=== PATIENT | male | born 1970 | race Caucasian/White ===

== ENCOUNTER → 2017-03-09 | Outpatient (CLI) | payer MEDICAID ==
[2017-03-09 14:32] LABS: Anisocytosis Slight; HCT 47.3 % (39.0-53.0); HGB 14.3 gm/dL (13.0-17.5); MCH 29.3 pg (25.0-35.0); MCHC 30.3 g/dL (31.0-37.0); MCV 96.5 fL (80.0-100.0); Mean Platelet Volume 7.7; Platelet Count 299 k/uL (150-450); WBC 6.7 k/uL (3.8-10.6)
== END | disposition home or self-care (01) ==
LOC: LABWHC1 13:58
PROVIDERS: ATTEND Obstetrics & Gynecology
DX: E29.1 Testicular hypofunction (principal)
CPT/HCPCS: 36415; 82670; 84402; 84403; 85027

== ENCOUNTER 2017-04-22 10:02 | Inpatient (IN) | payer MEDICAID ==
[2017-04-22] MEDS ORDERED: ONDANSETRON 4 MG/2 ML VIAL IVP STA (10:40)
[2017-04-22] MEDS ORDERED: SODIUM CHLORIDE 0.9% 500 ML IV STA (10:40)
[2017-04-22] MEDS ORDERED: PANTOPRAZOLE 40 MG/10 ML VIAL IVP STA (10:40)
[2017-04-22] MEDS ORDERED: HYDROmorphone 0.5 MG/0.5 ML SYRINGE IVP STA (10:40)
--- NOTE | 2017-04-22 10:45 | ED ---
General Adult HPI - General Chief complaint: Abdominal Pain Stated complaint: Abdominal pain Time Seen by Provider: 04/22/17 10:20 Source: patient, family, RN notes reviewed Mode of arrival: wheelchair Limitations: no limitations - History of Present Illness Initial comments: Chief complaint and history of present illness is a 46-year-old male here with his . The patient reports that around 2 AM he started having epigastric pain. Sometimes deep breathing makes it worse. He did have nausea vomiting. Normal bowel movement. Decreased appetite. He did have a fatty meal during the evening. Patient reports having had this similar thing happen years ago but did not seek medical attention. - Related Data Home Medications Medication Instructions Recorded Confirmed Cholecalciferol [Vitamin D3] 1,000 unit PO DAILY 04/22/17 04/22/17 Dim 1 cap PO BID 04/22/17 04/22/17 Lisinopril 40 mg PO HS 04/22/17 04/22/17 Methylfolate 15 mg PO DAILY 04/22/17 04/22/17 Multivitamins, Thera [Multivitamin 1 tab PO DAILY 04/22/17 04/22/17 (formulary)] Allergies Allergy/AdvReac Type Severity Reaction Status Date / Time No Known Allergies Allergy Verified 04/22/17 12:48 Review of Systems ROS Statement: Those systems with pertinent positive or pertinent negative responses have been documented in the HPI. Review of systems. No complaint of headache or visual acuity changes no neck pain no chest pain but when he does take a breath the discomfort to the epigastric region did increase. Denies pain going through to the back. Points to the area from the right upper quadrant or left upper quadrant and more toward the middle of the upper abdomen as area of discomfort. Denies any diarrhea, no peripheral problems no dizziness. All systems are reviewed. Past medical problems hypertension, surgeries tonsillectomy. Patient also has and GFR. The patient's family history mother had breast cancer. Patient has hayfever. Nonsmoker, drinks alcohol rarely socially. ROS Other: All systems not noted in ROS Statement are negative. Past Medical History Past Medical History: Hypertension History of Any Multi-Drug Resistant Organisms: None Reported Past Surgical History: Tonsillectomy Past Psychological History: No Psychological Hx Reported Smoking Status: Never smoker Past Alcohol Use History: Occasional Past Drug Use History: None Reported General Exam - General Exam Comments Initial Comments: General: The patient is awake and alert, appears uncomfortable points to the epigastric region as a discomfort. Radiates across the upper left and right side of the abdomen. Vital signs temperature 97.7 pulse 88 respiratory rate 18 pulse ox 97 % room air blood pressure 132/78 Eye: extra-ocular movements are intact; there is normal conjunctiva bilaterally. No signs of icterus. Ears, nose, mouth and throat: There are moist mucous membranes Neck: The neck is supple, Cardiovascular: There is a regular rate and rhythm. No murmur, rub or gallop is appreciated. Respiratory: Lungs are clear to auscultation, respirations are non-labored, breath sounds are equal. No wheezes, stridor, rales, or rhonchi. Gastrointestinal: Soft, non-distended, non-tender abdomen without masses or organomegaly noted. There is no rebound or guarding present. Bowel sounds are unremarkable. States the discomfort runs from the right upper and left upper quadrant and centered in the epigastric region. No guarding appreciated. Back: No radiation of pain to the back. Musculoskeletal: Normal ROM, no tenderness, There is no pedal edema. . Pulses equal bilaterally 2+. Neurological: No evidence of any neuro deficits, no complaint of dizziness. Skin: No complaint of rashes. Limitations: no limitations Course Vital Signs 04/22/17 04/22/17 10:14 13:02 Temperature 97.7 F Pulse Rate 88 79 Respiratory 18 16 Rate Blood Pressure 132/78 110/78 O2 Sat by Pulse 97 98 Oximetry Medical Decision Making - Medical Decision Making Medical decision making; so far 6-year-old male with a complaint of discomfort to the epigastric region across the upper abdomen starting around 2 AM. He did have nausea vomiting once during the evening. The patient's labs show white count of 9.5 hemoglobin 14.8 hematocrit of 46. Potassium 4.6 BUN of 15 creatinine 0.5 and GFR greater than 60. Glucose 107. AST mildly elevated at 86. Urine clean no signs of infection amylase and lipase within normal limits. X-ray of the abdomen was done and reviewed by radiologist his impression is that within the abdomen, the abdominal gas pattern is normal. There is no evidence of obstruction or free air. No unusual calcifications are seen. Impression normal abdomen. As read by Dr. Mcclelland Patient does appear to be overlying the right kidney area. CT of the abdomen was done and reviewed radiologist's he called a report when he suspects to be a calculus cholecystitis with thickened gallbladder wall and pericolic fluid around the gallbladder. As read by Dr. Mcclelland Is cussed the case with the patient and his at bedside and on-call general surgeon Dr. granda. Patient be admitted to his service kept nothing by mouth continue on Zosyn. - Lab Data Result diagrams: 04/22/17 10:30 04/22/17 10:30 Lab Results 04/22/17 04/22/17 04/22/17 Range/Units 09:50 10:30 10:30 WBC 9.5 (3.8-10.6) k/uL RBC 4.97 (4.30-5.90) m/uL Hgb 14.8 (13.0-17.5) gm/dL Hct 46.3 (39.0-53.0) % MCV 93.0 (80.0-100.0) fL MCH 29.7 (25.0-35.0) pg MCHC 31.9 (31.0-37.0) g/dL RDW 13.8 (11.5-15.5) % Plt Count 245 (150-450) k/uL Neutrophils % 83 % Lymphocytes % 10 % Monocytes % 5 % Eosinophils % 1 % Basophils % 0 % Neutrophils # 7.8 H (1.3-7.7) k/uL Lymphocytes # 1.0 (1.0-4.8) k/uL Monocytes # 0.5 (0-1.0) k/uL Eosinophils # 0.1 (0-0.7) k/uL Basophils # 0.0 (0-0.2) k/uL Sodium 142 (137-145) mmol/L Potassium 4.6 (3.5-5.1) mmol/L Chloride 102 (98-107) mmol/L Carbon Dioxide 30 (22-30) mmol/L Anion Gap 10 mmol/L BUN 15 (9-20) mg/dL Creatinine 0.90 (0.66-1.25) mg/dL Est GFR (MDRD) Af Amer >60 (>60 ml/min/1.73 sqM) Est GFR (MDRD) Non-Af >60 (>60 ml/min/1.73 sqM) Glucose 107 H (74-99) mg/dL Plasma Lactic Acid Ben (0.7-2.0) mmol/L Calcium 9.2 (8.4-10.2) mg/dL Total Bilirubin 0.2 (0.2-1.3) mg/dL AST 86 H (17-59) U/L ALT 62 (21-72) U/L Alkaline Phosphatase 48 (38-126) U/L Troponin I (0.000-0.034) ng/mL Total Protein 7.3 (6.3-8.2) g/dL Albumin 4.3 (3.5-5.0) g/dL Amylase 76 (30-110) U/L Lipase 83 (23-300) U/L Urine Color Yellow Urine Appearance Clear (Clear) Urine pH 6.0 (5.0-8.0) Ur Specific [place] 1.018 (1.001-1.035) Urine Protein Negative (Negative) Urine Glucose (UA) Negative (Negative) Urine Ketones Negative (Negative) Urine Blood Negative (Negative) Urine Nitrite Negative (Negative) Urine Bilirubin Negative (Negative) Urine Urobilinogen <2.0 (<2.0) mg/dL Ur Leukocyte Esterase Negative (Negative) 04/22/17 04/22/17 Range/Units 10:30 10:30 WBC (3.8-10.6) k/uL RBC (4.30-5.90) m/uL Hgb (13.0-17.5) gm/dL Hct (39.0-53.0) % MCV (80.0-100.0) fL MCH (25.0-35.0) pg MCHC (31.0-37.0) g/dL RDW (11.5-15.5) % Plt Count (150-450) k/uL Neutrophils % % Lymphocytes % % Monocytes % % Eosinophils % % Basophils % % Neutrophils # (1.3-7.7) k/uL Lymphocytes # (1.0-4.8) k/uL Monocytes # (0-1.0) k/uL Eosinophils # (0-0.7) k/uL Basophils # (0-0.2) k/uL Sodium (137-145) mmol/L Potassium (3.5-5.1) mmol/L Chloride (98-107) mmol/L Carbon Dioxide (22-30) mmol/L Anion Gap mmol/L BUN (9-20) mg/dL Creatinine (0.66-1.25) mg/dL Est GFR (MDRD) Af Amer (>60 ml/min/1.73 sqM) Est GFR (MDRD) Non-Af (>60 ml/min/1.73 sqM) Glucose (74-99) mg/dL Plasma Lactic Acid Ben 0.8 (0.7-2.0) mmol/L Calcium (8.4-10.2) mg/dL Total Bilirubin (0.2-1.3) mg/dL AST (17-59) U/L ALT (21-72) U/L Alkaline Phosphatase (38-126) U/L Troponin I <0.012 (0.000-0.034) ng/mL Total Protein (6.3-8.2) g/dL Albumin (3.5-5.0) g/dL Amylase (30-110) U/L Lipase (23-300) U/L Urine Color Urine Appearance (Clear) Urine pH (5.0-8.0) Ur Specific [place] (1.001-1.035) Urine Protein (Negative) Urine Glucose (UA) (Negative) Urine Ketones (Negative) Urine Blood (Negative) Urine Nitrite (Negative) Urine Bilirubin (Negative) Urine Urobilinogen (<2.0) mg/dL Ur Leukocyte Esterase (Negative) Disposition Clinical Impression: Acute acalculous cholecystitis Disposition: ADMITTED IP TO THIS HOSP Condition: Fair Referrals: Mike Jurado III, MD [Primary Care Provider] - 1-2 days
[2017-04-22 11:00] LABS: Basophils % (A) 0 %; Eosinophils # (A) 0.1 k/uL (0-0.7); Eosinophils % (A) 1 %; HCT 46.3 % (39.0-53.0); HGB 14.8 gm/dL (13.0-17.5); Lymphocytes % (A) 10 %; MCH 29.7 pg (25.0-35.0); MCHC 31.9 g/dL (31.0-37.0); Mean Platelet Volume 7.8; Monocytes # (A) 0.5 k/uL (0-1.0); Monocytes % (A) 5 %; Neutrophils # (A) 7.8 k/uL (1.3-7.7); Neutrophils % (A) 83 %; Platelet Count 245 k/uL (150-450); RBC 4.97 m/uL (4.30-5.90); RDW 13.8 % (11.5-15.5); WBC 9.5 k/uL (3.8-10.6)
[2017-04-22 11:06] LABS: Appearance,Urine Clear (Clear); Bilirubin,Urine Negative (Negative); Blood,Urine Negative (Negative); Color,Urine Yellow; Glucose,Urine (UA) Negative (Negative); Ketones,Urine Negative (Negative); Leukocyte Esterase,Urine Negative (Negative); Nitrite,Urine Negative (Negative); Protein,Urine Negative (Negative); Specific Gravity,Urine 1.018 (1.001-1.035); Urobilinogen,Urine <2.0 mg/dL (<2.0)
[2017-04-22 11:10] LABS: ALT 62 U/L (21-72); AST 86 U/L (17-59); Albumin 4.3 g/dL (3.5-5.0); Alkaline Phosphatase 48 U/L (38-126); Amylase 76 U/L (30-110); Anion Gap 10 mmol/L; Blood Urea Nitrogen 15 mg/dL (9-20); Calcium 9.2 mg/dL (8.4-10.2); Carbon Dioxide 30 mmol/L (22-30); Chloride 102 mmol/L (98-107); Glucose 107 mg/dL (74-99); Lipase 83 U/L (23-300); Potassium 4.6 mmol/L (3.5-5.1); Sodium 142 mmol/L (137-145); Total Bilirubin 0.2 mg/dL (0.2-1.3); Total Protein 7.3 g/dL (6.3-8.2)
--- NOTE | 2017-04-22 11:46 | XR ---
EXAMINATION TYPE: XR abdomen 2V , 3 VIEWS DATE OF EXAM ORDERED: 04/22/2017 HISTORY: abdominal pain. COMPARISON: None. FINDINGS: The lung bases are clear. Within the abdomen, the abdominal gas pattern is normal. There is no evidence of obstruction or free air. No unusual calcifications are seen. IMPRESSION: NORMAL ABDOMEN.
[2017-04-22] MEDS ORDERED: IOHEXOL 350 MG/ML 25 ML BOTTLE (ORAL USE) PO PRN (12:52)
[2017-04-22] MEDS ORDERED: RX INFO: IV CONTRAST WAS GIVEN 1 EACH MISC MISCELLANE PRN (12:52)
--- NOTE | 2017-04-22 14:33 | CT ---
EXAMINATION TYPE: CT abdomen pelvis w con DATE OF EXAM: 04/22/2017 REFERENCE: NONE HISTORY: Epigastric pain HISTORY: Upper abdominal pain, stomach area REFERENCE: NONE CT DLP: 981.0 mGy Automated exposure control for dose reduction was used. TECHNIQUE: Helical acquisition through the abdomen and pelvis was obtained following the oral ingesti on of with Oral Contrast and following intravenous administration of 100 mL of Omnipaque 300. The jace a was reformatted in axial, coronal and sagittal projections. FINDINGS: There is mild atelectasis at the lung bases. Lungs otherwise clear. There is no pleural or pericardial fluid. The heart is not enlarged. Within the abdomen, there is gross enhancement or gallbladder wall. There is pericholecystic fluid. The liver and spleen appear normal. Both adrenal glands appear normal. There is a nonobstructing 8 mm calculus in the posterior middle pole calyx of the right kidney. The k idneys otherwise appear normal. The pancreas is unremarkable. There is no significant retroperitoneal, iliac or inguinal adenopathy. The bladder is unremarkable. There is no significant diverticular change and there is no radiographic evidence of diverticulitis. The appendix is normal. Small bowel loops appear normal. No free fluid and no free air is seen. There is minor hypertrophic spondylosis at L1-2. No bony destructive lesion is seen. IMPRESSION: 1. FINDINGS SUGGESTIVE OF ACUTE ACALCULOUS CHOLECYSTITIS. 2. 8MM NONOBSTRUCTING RIGHT RENAL CALCULUS. 3. MINIMAL DEGENERATIVE CHANGE WITHIN THE SPINE.
[2017-04-22] MEDS ORDERED: ONDANSETRON 4 MG/2 ML VIAL IVP PRN (14:40)
[2017-04-22] MEDS ORDERED: NALOXONE 0.4 MG/ML 1 ML VIAL IV PRN (14:40)
[2017-04-22] MEDS: SODIUM CHLORIDE 0.9% 1,000 ML IV SCH ×2 (15:08→20:24)
[2017-04-22] MEDS: PIPERACILLIN-TAZOBACTAM 3.375 GM in DEXTROSE/WATER 1 50ML.BAG IVPB STA ×2 (15:09→15:10)
[2017-04-22 15:51] VITALS: BMI 29.1
--- NOTE | 2017-04-22 18:08 | P.GSHP ---
History of Present Illness H&P Date: 04/22/17 46-year-old male presents to the emergency department complaining of severe epigastric pain. He states that the pain started late last night and begin his epigastrium and then radiated to his sides. He also complained of nausea and an emesis episode. He states that he had a similar attack approximately 2 years ago that resolved on its own. He denies having any severe reflux symptoms. He did have a CT of the abdomen and pelvis performed in the emergency department that did show gallbladder wall thickening and pericholecystic fluid. Per the radiologist, suspicious for acalculous cholecystitis. He has no additional complaints at this time. He denies any fevers, chills, chest pain or shortness of breath. - Review of Systems All systems: negative Past Medical History Past Medical History: Hypertension, Skin Disorder Additional Past Medical History / Comment(s): basal cell ca History of Any Multi-Drug Resistant Organisms: None Reported Past Surgical History: Tonsillectomy Past Anesthesia/Blood Transfusion Reactions: No Reported Reaction Past Psychological History: No Psychological Hx Reported Smoking Status: Never smoker Past Alcohol Use History: Occasional Past Drug Use History: None Reported Medications and Allergies Home Medications Medication Instructions Recorded Confirmed Type Cholecalciferol [Vitamin D3] 1,000 unit PO DAILY 04/22/17 04/22/17 History Dim 1 cap PO BID 04/22/17 04/22/17 History Lisinopril 40 mg PO HS 04/22/17 04/22/17 History Methylfolate 15 mg PO DAILY 04/22/17 04/22/17 History Multivitamins, Thera [Multivitamin 1 tab PO DAILY 04/22/17 04/22/17 History (formulary)] Allergies Allergy/AdvReac Type Severity Reaction Status Date / Time No Known Allergies Allergy Verified 04/22/17 12:48 Surgical - Exam Osteopathic Statement: *. No significant issues noted on an osteopathic structural exam other than those noted in the History and Physical/Consult. Vital Signs Temp Pulse Resp BP Pulse Ox 97.7 F 88 18 132/78 97 04/22/17 10:14 04/22/17 10:14 04/22/17 10:14 04/22/17 10:14 04/22/17 10:14 - General well nourished, no distress - Eyes PERRL, normal ocular movement - ENT normal mucosa, no hearing loss - Neck no masses, no bruits, trachea midline - Respiratory No difficulty with respiration - Abdomen Soft, mild tenderness in the epigastrium, no rebound, no guarding, nondistended - Integumentary no rash, no growths - Neurologic normal sensation - Psychiatric oriented to time, oriented to person, oriented to place, speech is normal, memory intact Results - Labs 04/22/17 10:30 04/22/17 10:30 Abnormal Lab Results - Last 24 Hours (Table) 04/22/17 04/22/17 Range/Units 10:30 10:30 Neutrophils # 7.8 H (1.3-7.7) k/uL Glucose 107 H (74-99) mg/dL AST 86 H (17-59) U/L Diabetes panel 04/22/17 Range/Units 10:30 Sodium 142 (137-145) mmol/L Potassium 4.6 (3.5-5.1) mmol/L Chloride 102 (98-107) mmol/L Carbon Dioxide 30 (22-30) mmol/L BUN 15 (9-20) mg/dL Creatinine 0.90 (0.66-1.25) mg/dL Glucose 107 H (74-99) mg/dL Calcium 9.2 (8.4-10.2) mg/dL AST 86 H (17-59) U/L ALT 62 (21-72) U/L Alkaline Phosphatase 48 (38-126) U/L Total Protein 7.3 (6.3-8.2) g/dL Albumin 4.3 (3.5-5.0) g/dL Calcium panel 04/22/17 Range/Units 10:30 Calcium 9.2 (8.4-10.2) mg/dL Albumin 4.3 (3.5-5.0) g/dL Pituitary panel 04/22/17 Range/Units 10:30 Sodium 142 (137-145) mmol/L Potassium 4.6 (3.5-5.1) mmol/L Chloride 102 (98-107) mmol/L Carbon Dioxide 30 (22-30) mmol/L BUN 15 (9-20) mg/dL Creatinine 0.90 (0.66-1.25) mg/dL Glucose 107 H (74-99) mg/dL Calcium 9.2 (8.4-10.2) mg/dL Adrenal panel 04/22/17 Range/Units 10:30 Sodium 142 (137-145) mmol/L Potassium 4.6 (3.5-5.1) mmol/L Chloride 102 (98-107) mmol/L Carbon Dioxide 30 (22-30) mmol/L BUN 15 (9-20) mg/dL Creatinine 0.90 (0.66-1.25) mg/dL Glucose 107 H (74-99) mg/dL Calcium 9.2 (8.4-10.2) mg/dL Total Bilirubin 0.2 (0.2-1.3) mg/dL AST 86 H (17-59) U/L ALT 62 (21-72) U/L Alkaline Phosphatase 48 (38-126) U/L Total Protein 7.3 (6.3-8.2) g/dL Albumin 4.3 (3.5-5.0) g/dL - Imaging CT scan - abdomen: report reviewed (Reviewed CT abdomen and pelvis, I agree with the finding of pericholecystic fluid and gallbladder wall thickening), image reviewed CT scan - pelvis: report reviewed, image reviewed Assessment and Plan (1) Acute acalculous cholecystitis Current Visit: Yes Status: Acute Code(s): K81.0 - ACUTE CHOLECYSTITIS SNOMED Code(s): 66909759 Plan: 46-year-old male with acute cholecystitis #1 continue Zosyn as an antibiotic #2 clear liquid diet, nothing by mouth after midnight #3 plan for laparoscopic cholecystectomy #4 DVT prophylaxis #5 further recommendations once surgery is completed
[2017-04-22] MEDS: HYDROmorphone 0.5 MG/0.5 ML SYRINGE IVP PRN (20:25)
[2017-04-23] MEDS: PIPERACILLIN-TAZOBACTAM 3.375 GM in DEXTROSE/WATER 1 50ML.BAG IVPB SCH ×4 (01:04→23:32)
[2017-04-23] MEDS: HYDROmorphone 0.5 MG/0.5 ML SYRINGE IVP PRN (01:50)
[2017-04-23] MEDS: SODIUM CHLORIDE 0.9% 1,000 ML IV SCH ×2 (04:59→11:31)
[2017-04-23 07:01] LABS: Basophils % (A) 1 %; Eosinophils # (A) 0.2 k/uL (0-0.7); Eosinophils % (A) 4 %; HGB 13.5 gm/dL (13.0-17.5); Lymphocytes # (A) 1.7 k/uL (1.0-4.8); Lymphocytes % (A) 30 %; MCH 29.3 pg (25.0-35.0); MCHC 30.7 g/dL (31.0-37.0); MCV 95.4 fL (80.0-100.0); Mean Platelet Volume 7.7; Monocytes # (A) 0.4 k/uL (0-1.0); Monocytes % (A) 7 %; Neutrophils # (A) 3.1 k/uL (1.3-7.7); Neutrophils % (A) 56 %; Platelet Count 265 k/uL (150-450); RBC 4.61 m/uL (4.30-5.90); RDW 13.8 % (11.5-15.5); WBC 5.4 k/uL (3.8-10.6)
[2017-04-23 07:24] LABS: ALT 297 U/L (21-72); AST 227 U/L (17-59); Albumin 3.4 g/dL (3.5-5.0); Alkaline Phosphatase 53 U/L (38-126); Anion Gap 8 mmol/L; Blood Urea Nitrogen 7 mg/dL (9-20); Calcium 8.8 mg/dL (8.4-10.2); Carbon Dioxide 27 mmol/L (22-30); Chloride 106 mmol/L (98-107); Glucose 99 mg/dL (74-99); Potassium 4.5 mmol/L (3.5-5.1); Sodium 141 mmol/L (137-145); Total Bilirubin 0.7 mg/dL (0.2-1.3)
[2017-04-23] MEDS ORDERED: IV FLUID CONTINUATION 1,000 ML IV ONE (08:16)
[2017-04-23] MEDS: PANTOPRAZOLE 40 MG/10 ML VIAL IV SCH (08:17)
[2017-04-23] MEDS ORDERED: HEPARIN SODIUM,PORCINE 5,000 UNIT/ML 1 ML VIAL SQ ONE (08:40)
[2017-04-23] MEDS ORDERED: GLYCOPYRROLATE 0.2 MG/ML 2 ML VIAL ONE (09:03)
[2017-04-23] MEDS ORDERED: NEOSTIGMINE 1 MG/ML 10 ML VIAL ONE (09:03)
[2017-04-23] MEDS ORDERED: fentaNYL (PF) 50 MCG/ML 2 ML AMP ONE (09:03)
[2017-04-23] MEDS ORDERED: MIDAZOLAM 2 MG/2 ML VIAL ONE (09:03)
[2017-04-23] MEDS ORDERED: LIDOCAINE 1% INJ 10MG/ML (20 ML MDV) ONE (09:03)
[2017-04-23] MEDS ORDERED: PROPOFOL 10 MG/ML 20 ML VIAL IV ONE (09:03)
[2017-04-23] MEDS ORDERED: SUCCINYLCHOLINE CHLORIDE 100 MG/5 ML SYR IV ONE (09:03)
[2017-04-23] MEDS ORDERED: ONDANSETRON 4 MG/2 ML VIAL ONE (09:03)
[2017-04-23] MEDS ORDERED: ROCURONIUM BROMIDE 10 MG/ML 10 ML VIAL IV ONE (09:03)
[2017-04-23] MEDS ORDERED: BUPIVACAINE (PF) 0.25% 30 ML VIAL SQ ONE ×2 (09:22)
[2017-04-23] MEDS ORDERED: LACTATED RINGERS 1,000 ML IV ONE ×2 (09:52→11:02)
--- NOTE | 2017-04-23 10:19 | P.OP ---
Date of Procedure: 04/23/17 Preoperative Diagnosis: Acute cholecystitis Postoperative Diagnosis: Acute cholecystitis with calculus Procedure(s) Performed: Laparoscopic cholecystectomy Anesthesia: LIZ Surgeon: Kusum Waldrop Pathology: other (Gallbladder and contents) Condition: stable Disposition: floor Indications for Procedure: 46-year-old gentleman presented to the emergency department complaining of epigastric pain. On workup in the emergency department he was found to have pericholecystic fluid and gallbladder wall thickening suggestive of acute cholecystitis. No stones were evident on the computed tomography scan however. On examination the patient continued to have epigastric and right upper quadrant pain. With these findings, a cholecystectomy was offered to the patient. The patient was explained the risks, benefits and alternatives to the procedure and provided consent prior to attending the operating suite. Operative Findings: Edematous gallbladder with noted cholelithiasis Description of Procedure: The patient was brought into the operating suite placed in supine position on the operating table. Sedation was provided by anesthesia and the patient underwent endotracheal intubation. The patient was then prepped and draped in regular sterile fashion. A infraumbilical incision was made dissection was carried to the fascia the fascia was incised in the abdomen was entered. A 12 mm port was placed and pneumoperitoneum was achieved. 3 additional 5 mm ports were placed. One was placed in the epigastric region, the second was placed in the right upper quadrant, the third was placed in the right upper quadrant. The gallbladder was then grasped and retracted and dissection was carried to remove the adhesive tissue from the cystic duct and cystic artery. Both the cystic duct and cystic artery were skeletonized and clearly visualized. The cystic duct was then ligated after 2 clips were placed proximally and one clip was placed distally. 2 clips were also placed proximally and the cystic artery one was placed distally and the cystic artery was ligated. Electrocautery was then used to dissect the gallbladder from the gallbladder fossa on the liver bed. She was noted to be very edematous. Hemostasis was maintained with the electrocautery throughout this process. The gallbladder was then placed in an Endo Catch bag and removed from the infra umbilical incision site. Copious muss irrigation was then placed. Hemostasis was noted to be maintained. Pneumoperitoneum was relieved from the abdomen. All ports were removed. The infraumbilical incision site fascia was closed with multiple [id number] 0 Vicryl suture. All skin incisions were then closed with 4-0 Vicryl sutures in subcuticular fashion. The patient was then awakened in the operating suite and taken to postanesthesia care unit in stable condition.
[2017-04-23] MEDS ORDERED: KETOROLAC 30 MG/ML 1 ML VIAL IVP ONE (10:21)
[2017-04-23] MEDS ORDERED: HYDROmorphone 0.5 MG/0.5 ML SYRINGE IVP ONE ×4 (10:22→10:56)
[2017-04-23] MEDS ORDERED: HYDROcodone/APAP 5-325MG 1 EACH TAB PO PRN (11:02)
[2017-04-23] MEDS: HEPARIN SODIUM,PORCINE 5,000 UNIT/ML 1 ML VIAL SQ SCH ×2 (16:27→23:33)
[2017-04-23] MEDS: HYDROmorphone 2 MG TAB PO PRN ×2 (18:35→21:32)
[2017-04-23] MEDS ORDERED: LISINOPRIL 20 MG TAB PO SCH (21:00)
[2017-04-24] MEDS ORDERED: HYDROmorphone 0.5 MG/0.5 ML SYRINGE IVP PRN (00:27)
[2017-04-24] MEDS ORDERED: HYDROcodone/APAP 7.5-325MG 1 EACH TAB PO ONE (00:30)
[2017-04-24] MEDS ORDERED: HYDROmorphone 4 MG TABLET PO PRN ×2 (00:49→00:51)
[2017-04-24 07:25] LABS: Basophils % (A) 0 %; Eosinophils # (A) 0.1 k/uL (0-0.7); Eosinophils % (A) 2 %; HCT 38.9 % (39.0-53.0); HGB 11.9 gm/dL (13.0-17.5); Hypochromasia Slight; Lymphocytes # (A) 1.6 k/uL (1.0-4.8); Lymphocytes % (A) 26 %; MCH 29.6 pg (25.0-35.0); MCHC 30.5 g/dL (31.0-37.0); MCV 97.2 fL (80.0-100.0); Mean Platelet Volume 7.8; Monocytes # (A) 0.4 k/uL (0-1.0); Monocytes % (A) 7 %; Neutrophils # (A) 3.8 k/uL (1.3-7.7); Neutrophils % (A) 63 %; Platelet Count 228 k/uL (150-450)
[2017-04-24 07:26] VITALS: RESP 16
[2017-04-24] MEDS: HEPARIN SODIUM,PORCINE 5,000 UNIT/ML 1 ML VIAL SQ SCH (07:35)
[2017-04-24] MEDS: PIPERACILLIN-TAZOBACTAM 3.375 GM in DEXTROSE/WATER 1 50ML.BAG IVPB SCH (07:35)
[2017-04-24] MEDS: oxyCODONE-APAP 5-325MG 1 EACH TAB PO PRN ×2 (07:35→13:48)
[2017-04-24] MEDS: PANTOPRAZOLE 40 MG/10 ML VIAL IV SCH (07:36)
[2017-04-24 07:44] LABS: ALT 223 U/L (21-72); AST 96 U/L (17-59); Albumin 3.2 g/dL (3.5-5.0); Alkaline Phosphatase 49 U/L (38-126); Anion Gap 7 mmol/L; Blood Urea Nitrogen 7 mg/dL (9-20); Calcium 8.6 mg/dL (8.4-10.2); Carbon Dioxide 30 mmol/L (22-30); Chloride 102 mmol/L (98-107); Glucose 102 mg/dL (74-99); Potassium 4.1 mmol/L (3.5-5.1); Sodium 139 mmol/L (137-145); Total Bilirubin 0.4 mg/dL (0.2-1.3); Total Protein 5.5 g/dL (6.3-8.2)
[2017-04-24 14:20] VITALS: BP 121/74; PULSE 71; TEMP 98.2
--- NOTE | 2017-04-24 14:50 | P.DS ---
<Myra Fulton - Last Filed: 04/24/17 14:50> Providers Date of admission: 04/22/17 14:48 Expected date of discharge: 04/24/17 Attending physician: Kusum Waldrop DO Primary care physician: [facility] Course: Patient reported that the discomfort was severe it started the night before radiated to the sides. Associated with nausea. Had an emesis. Patient stated he had a similar attack about 2 years ago but it resolved on its own. CAT scan of the abdomen and pelvis performed in the emergency room did show gallbladder wall thickening and pericholecystic fluid. Suspicious for acalculous cholecystitis Patient was admitted to the services of the attending and elects to undergo a laparoscopic cholecystectomy for acute cholecystitis with calculus. Postop events. Patient was up ambulatory on the unit. Surgical sites no redness. Tolerating a diet and pain medication effective for pain control.. Patient was felt to be human mimic a stable and appropriate proceed with a discharge to home Impression discharge diagnosis Present on admission epigastric pain suspect due to acute cholecystitis Postop April 24 laparoscopic cholecystectomy for acute cholecystitis with calculus (1) Acute acalculous cholecystitis Current Visit: Yes Status: Acute Code(s): K81.0 - ACUTE CHOLECYSTITIS SNOMED Code(s): 44876580 Discharge summary dictated by Dr. Waldrop The above impression and plan of care have been discussed and directed by signing physician. Myra Fulton nurse practitioner acting as scribe for signing physician. Patient Condition at Discharge: Fair Plan - Discharge Summary Discharge Rx Participant: Yes New Discharge Prescriptions: New oxyCODONE-APAP 5-325MG [Percocet 5-325 mg] 1 each PO Q6HR PRN #15 tab PRN Reason: Pain Continue Methylfolate 15 mg PO DAILY Multivitamins, Thera [Multivitamin (formulary)] 1 tab PO DAILY Lisinopril 40 mg PO HS Cholecalciferol [Vitamin D3] 1,000 unit PO DAILY Dim 1 cap PO BID Discharge Medication List Cholecalciferol [Vitamin D3] 1,000 unit PO DAILY 04/22/17 [History] Dim 1 cap PO BID 04/22/17 [History] Lisinopril 40 mg PO HS 04/22/17 [History] Methylfolate 15 mg PO DAILY 04/22/17 [History] Multivitamins, Thera [Multivitamin (formulary)] 1 tab PO DAILY 04/22/17 [History ] oxyCODONE-APAP 5-325MG [Percocet 5-325 mg] 1 each PO Q6HR PRN #15 tab 04/24/17 [ Rx] Follow up Appointment(s)/Referral(s): Mike Jurado III, MD [Primary Care Provider] - 04/25/17 12:30 pm Kusum Waldrop DO [Doctor of Osteopathic Medicine] - 05/02/17 11:15 am Patient Instructions/Handouts: Laparoscopic Cholecystectomy (DC) Activity/Diet/Wound Care/Special Instructions: No tub bath for six weeks. Shower daily. No lifting over 4 pounds for the next 6 weeks. May use ice packs to surgical site. No driving while taking narcotic for pain. [id number] Colace for constipation as needed Advance diet as tolerated low-fat May return to work after seen in a follow-up visit with Dr. Waldrop in the office next week to discuss returning to work Discharge Disposition: HOME SELF-CARE <Kusum Waldrop - Last Filed: 05/19/17 08:54> - Discharge Diagnosis(es) (1) Acute acalculous cholecystitis Status: Acute Hospital Course: Pt is surgically stable for discharge. F/u in office in 7-10 days.
== END 2017-04-24 15:00 | disposition home or self-care (01) | DRG 419 ==
LOC: EC 10:02 → 3SUR 14:48
PROVIDERS: ADMIT Surgery; ATTEND Surgery
PROC: 0FT44ZZ Resection of Gallbladder, Percutaneous Endoscopic Approach (ICD-10-PCS; principal; 2017-04-23 19:05)
DX: K80.00 Calculus of gallbladder with acute cholecystitis without obstruction (principal); I10 Essential (primary) hypertension; Z79.899 Other long term (current) drug therapy; Z85.828 Personal history of other malignant neoplasm of skin
CPT/HCPCS: 36415; 74019; 74177; 80053; 81003; 82150; 83605; 83690; 84484; 85025; 88304; 96361; 96374; 96375; 99285

== ENCOUNTER → 2017-10-09 | Outpatient (CLI) | payer MEDICAID ==
--- NOTE | 2017-10-10 | CONS ---
CONSULTATION Consultation for sleep apnea. 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 The patient is coming in for sleep apnea evaluation. There is concern of sleep apnea. This runs in the family. Brother and sister have obstructive sleep apnea. He has history of snoring as reported by the . He has a history of witnessed apneas are reported by the . He has excessive daytime sleepiness and fatigue. He has nocturia and he wakes up with dry mouth. He goes to bed around midnight and wakes up 6:30 am in the morning. He does not fall asleep while driving or performing day-to-day activities. He is a respiratory therapist as mentioned. Ben Bolt score of 17. No recent weight gain. He has undergone a tonsillectomy in the past. PAST MEDICAL HISTORY: Hypertension. SURGICAL HISTORY: Tonsillectomy and cholecystectomy. DRUG ALLERGIES: Not known. MEDICATION: Includes Norvasc 5 mg p.o. daily. SOCIAL HISTORY: Nonsmoker. No alcohol. No history of IV drugs. Drinks 2-3 cups of coffee during the day. FAMILY HISTORY: Positive for sleep apnea including brother and a sister. REVIEW OF SYSTEMS: 12-point review of system was done. Positive findings are mentioned in history of present illness. No grinding of the teeth. No anxiety or panic attacks. No palpitations. No heartburn at nighttime. No chest pain at nighttime. No gasping for air or arousals in the middle of the night with a choking sensation. No restlessness in lower extremities. No sleep talking. No anxiety or depression. No sexual dysfunction. No irritability or depression. PHYSICAL EXAMINATION: BP is 153/74, pulse 97, respirations 16, temperature 98.2, weight is 208, height is 5 feet 11 inches, Ben Bolt score 17, BMI 28.4. Neck size 17 a quarter of an inch. saturation 97% on room air. GENERAL APPEARANCE: Calm, comfortable. Head is atraumatic, normocephalic. Neck is short, supple, crowding of the posterior pharynx. No goiter or neck masses. LUNGS: Clear to auscultation. HEART: Sounds regular rhythm. Normal S1, S2. No S3, S4. No murmurs. ABDOMEN: Soft, nontender. No organomegaly. EXTREMITIES: No edema. No cyanosis or clubbing. IMPRESSION: 1. Loud snoring. 2. Witnessed apneas. 3. Daytime sleepiness Ben Bolt score is 17. 4. Hypertension. PLAN: 1. Proceed with a screening polysomnogram. 2. Based on results, we will make further recommendations regarding the need for CPAP therapy. GUERRERO / BROCKN: [id number] /
== END | disposition home or self-care (01) ==
LOC: SLEEP 15:10
PROVIDERS: ATTEND Internal Medicine Critical Care Medicine
DX: G47.30 Sleep apnea, unspecified (principal); G47.10 Hypersomnia, unspecified; I10 Essential (primary) hypertension; Z90.89 Acquired absence of other organs; Z90.49 Acquired absence of other specified parts of digestive tract; Z79.899 Other long term (current) drug therapy
CPT/HCPCS: 99211

== ENCOUNTER 2017-10-21 18:08 | Emergency (ER) | payer MEDICAID ==
[2017-10-21 18:14] VITALS: BP 163/95; PULSE 108; RESP 18; TEMP 98.4
[2017-10-21] MEDS ORDERED: diphenhydrAMINE 50 MG CAP PO STA (18:37)
[2017-10-21] MEDS ORDERED: methylPREDNISolone SOD SUCCI 125 MG/2 ML VIAL IM STA (18:37)
[2017-10-21] MEDS ORDERED: FAMOTIDINE 20 MG TAB PO STA (18:37)
--- NOTE | 2017-10-21 18:50 | ED ---
Skin/Abscess/FB HPI - General Chief complaint: Skin/Abscess/Foreign Body Stated complaint: 3 BEE STINGS JUST PRIOR TO SHIFT Time Seen by Provider: 10/21/17 18:33 Source: patient, RN notes reviewed Mode of arrival: ambulatory Limitations: no limitations - History of Present Illness Initial comments: This is a 47-year-old male who presents to the emergency department with chief complaint of bee stings. Patient does work here at the hospital. He states that at 12:30, prior to his shift, he was stung by a bee in his left cheondoism, left hand and right lower extremity. He states that his left hand and right ankle have had progressive swelling throughout the day today. He states that when he got to work he went to the pharmacy to buy Benadryl but they were closed. Patient denies any chest pain or shortness of breath. Denies fevers or chills. Denies abdominal pain, nausea or vomiting. Patient states she does not have an allergy to bee stings. - Related Data Home Medications Medication Instructions Recorded Confirmed Cholecalciferol [Vitamin D3] 1,000 unit PO DAILY 04/22/17 04/22/17 Dim 1 cap PO BID 04/22/17 04/22/17 Lisinopril 40 mg PO HS 04/22/17 04/22/17 Methylfolate 15 mg PO DAILY 04/22/17 04/22/17 Multivitamins, Thera [Multivitamin 1 tab PO DAILY 04/22/17 04/22/17 (formulary)] Previous Rx's Medication Instructions Recorded oxyCODONE-APAP 5-325MG [Percocet 1 each PO Q6HR PRN #15 tab 04/24/17 5-325 mg] predniSONE 20 mg PO BID #8 tab 10/21/17 Allergies Allergy/AdvReac Type Severity Reaction Status Date / Time No Known Allergies Allergy Verified 10/21/17 18:14 Review of Systems ROS Statement: Those systems with pertinent positive or pertinent negative responses have been documented in the HPI. ROS Other: All systems not noted in ROS Statement are negative. Past Medical History Past Medical History: Cancer, Hypertension, Skin Disorder Additional Past Medical History / Comment(s): basal cell ca History of Any Multi-Drug Resistant Organisms: None Reported Past Surgical History: Cholecystectomy, Tonsillectomy Past Anesthesia/Blood Transfusion Reactions: No Reported Reaction Past Psychological History: No Psychological Hx Reported Smoking Status: Never smoker Past Alcohol Use History: Occasional Past Drug Use History: None Reported General Exam - General Exam Comments Initial Comments: General: Awake and alert, well-developed; in no apparent distress. HEENT: Head atraumatic, normocephalic. Pupils are equal, round and reactive to light. Extraocular movements intact. Oropharynx moist without erythema or exudate. Neck: Supple. Normal ROM. Cardiovascular: Regular rate and rhythm. No murmurs, rubs or gallops. Chest symmetrical. Respiratory: Lungs clear to auscultation bilaterally. No wheezes, rales or rhonchi. Normal respiratory effort with no use of accessory muscles. Musculoskeletal: Normal ROM, no tenderness bilateral upper and lower extremities. Ambulating normally. Skin: The left hand and right ankle have generalized swelling and erythema. Small maculopapular lesion on the left cheondoism consistent with bee sting. All other areas are pink, warm and dry. Neurological: Alert and oriented x3. CN II-XII grossly intact. Speech is fluent and answers are appropriate. No focal neuro deficits. Psychiatric: Normal mood and affect. No overt signs of depression or anxiety noted. Limitations: no limitations Course Vital Signs 10/21/17 18:11 Temperature 98.4 F Pulse Rate 108 H Respiratory 18 Rate Blood Pressure 163/95 O2 Sat by Pulse 98 Oximetry Medical Decision Making - Medical Decision Making This is a 47-year-old male who presents to the emergency department with chief complaint bee stings. Patient reports being stung in the left hand, left temporal and right ankle at 12:30 this afternoon. Denies any chest pain or shortness of breath. On physical examination, there is generalized swelling and erythema of the left hand and right ankle. Patient given Solu-Medrol, Pepcid and Benadryl. He will be discharged home with a prescription for prednisone. Patient is in no acute distress. He is in agreement with plan and voices understanding. All questions answered. Disposition Clinical Impression: Allergic reaction to bee sting Disposition: HOME SELF-CARE Condition: Good Instructions: General Allergic Reaction (ED), Insect Bite or Sting (ED) Additional Instructions: Please take medications as prescribed. Please follow up with primary care provider within 1-2 days. Return to emergency department if symptoms should worsen or any concerns arise. Prescriptions: predniSONE 20 mg PO BID #8 tab Is patient prescribed a controlled substance at d/c from ED?: No Referrals: Mike Jurado III, MD [Primary Care Provider] - 1-2 days Time of Disposition: 19:00
== END 2017-10-21 19:00 | disposition home or self-care (01) ==
LOC: EC 18:08
DX: T63.441A Toxic effect of venom of bees, accidental (unintentional), initial encounter (principal); I10 Essential (primary) hypertension; Z79.899 Other long term (current) drug therapy; Y92.239 Unspecified place in hospital as the place of occurrence of the external cause
CPT/HCPCS: 99282; 96372; J2930

== ENCOUNTER → 2018-01-05 | Outpatient (CLI) | payer MEDICAID ==
[2018-01-05 12:37] LABS: HCT 45.5 % (39.0-53.0); HGB 14.3 gm/dL (13.0-17.5); MCH 29.9 pg (25.0-35.0); MCHC 31.4 g/dL (31.0-37.0); MCV 95.2 fL (80.0-100.0); Mean Platelet Volume 7.7; Platelet Count 207 k/uL (150-450); RBC 4.78 m/uL (4.30-5.90); RDW 14.9 % (11.5-15.5); WBC 5.2 k/uL (3.8-10.6)
== END | disposition home or self-care (01) ==
LOC: LABWHC1 11:53
PROVIDERS: ATTEND Obstetrics & Gynecology
DX: E29.1 Testicular hypofunction (principal); Z12.5 Encounter for screening for malignant neoplasm of prostate
CPT/HCPCS: 82670; 85027; 84403; 36415; G0103

== ENCOUNTER → 2018-02-05 | Outpatient (CLI) | payer MEDICAID ==
--- NOTE | 2018-02-05 19:57 | PN ---
PROGRESS NOTE Nicholas is 47 and the patient is coming in for a CPAP compliance evaluation. This patient was diagnosed having severe STEPHEN with an AHI of 50. The patient is currently on CPAP at a pressure of 10 cm of water. He reports marked improvement in his sleep quality in general, and the patient is sleeping much better. He is waking up much more refreshed and alert during the day. He has no significant issues. He has been utilizing his CPAP every night. His CPAP use for more than 4 hours is 100%. His average CPAP use is around 6.9 hours per night. Leak factor is 70 L/minute. His AHI while on treatment is down to 3.1. He is using a DreamWear nose mask. He has no major complaints otherwise. His blood pressure remains slightly elevated for now. He is very happy and content with his CPAP therapy. His Hestand score is down to 8. REVIEW OF SYSTEMS: Twelve-point review of systems was done. Positive findings were all mentioned above in the history of present illness. PHYSICAL EXAMINATION: BP is 159/92, pulse is 80, respirations 16, temperature 98.2. Oxygen saturation is 99% on room air. Weight is 218. GENERAL APPEARANCE: Calm, comfortable. Head is atraumatic, normocephalic. Neck is supple. There is no JVD or goiter or neck mass. LUNGS: Clear to auscultation. Heart sounds are regular rate and rhythm. Normal S1, S2. No S3, S4. No murmurs. ABDOMEN: Soft, non-tender. EXTREMITIES: No edema. No cyanosis or clubbing. NEUROLOGIC: The patient is alert and oriented x3. There is no focal neurological deficit. IMPRESSION: 1. Severe obstructive sleep apnea with an apnea/hypopnea index of 50. The patient is being successfully treated with a CPAP pressure of 10 cm of water. 2. Hypersomnia, recovered. Hestand score is down to 8. 3. Hypertension. PLAN: 1. Continue CPAP therapy at the same level of pressure. 2. Continue the DreamWear nose mask. 3. Treatment is successful. The patient is happy with the treatment. He has no complaints. He will see me back in a year's time in followup, earlier if needed. MMODL / IJN: [id number] /
== END | disposition home or self-care (01) ==
LOC: SLEEP 13:50
PROVIDERS: ATTEND Internal Medicine Critical Care Medicine
DX: G47.33 Obstructive sleep apnea (adult) (pediatric) (principal); I10 Essential (primary) hypertension; Z99.89 Dependence on other enabling machines and devices

== ENCOUNTER 2018-04-15 16:11 | Emergency (ER) | payer MEDICAID, OTHER ==
[2018-04-15 16:27] VITALS: BP 155/90; RESP 20; TEMP 97.5
--- NOTE | 2018-04-15 16:37 | ED ---
General Adult HPI - General Chief complaint: Needlestick/Exposure Stated complaint: [facility]-Needlestick Time Seen by Provider: 04/15/18 16:13 Source: patient, RN notes reviewed, old records reviewed Mode of arrival: ambulatory Limitations: no limitations - History of Present Illness Initial comments: 47-year-old male patient presents to ED after needlestick. Patient reports that he was using a hollow bore needle to take venous blood gases when he grazed the second digit of his left hand. Patient denies any puncture wound. Patient reports that they have a small amount of bleeding. Patient reports that he washed hands vigorously afterwards, denies any further bleeding. Patient denies other complaints. Systemic: Pt denies fatigue, myalgia, fever/chills, rash. Pt denies weakness, night sweats, weight loss. Neuro: Pt denies headache, visual disturbances, syncope or pre-syncope. HEENT: Pt denies ocular discharge or irritation, otalgia, rhinorrhea, pharyngitis or notable lymphadenopathy. Cardiopulmonary: Pt denies chest pain, SOB, heart palpitations, dyspnea on exertion. Abdominal/GI: Pt denies abdominal pain, n/v/d. : Pt denies dysuria, burning w/ urination, frequency/urgency. Denies new onset urinary or bowel incontinence. MSK: Pt denies myalgia, loss of strength or function in extremities. Neuro: Pt denies new onset weakness, paresthesias. - Related Data Home Medications Medication Instructions Recorded Confirmed Cholecalciferol [Vitamin D3] 1,000 unit PO DAILY 04/22/17 04/22/17 Dim 1 cap PO BID 04/22/17 04/22/17 Lisinopril 40 mg PO HS 04/22/17 04/22/17 Methylfolate 15 mg PO DAILY 04/22/17 04/22/17 Multivitamins, Thera [Multivitamin 1 tab PO DAILY 04/22/17 04/22/17 (formulary)] Previous Rx's Medication Instructions Recorded oxyCODONE-APAP 5-325MG [Percocet 1 each PO Q6HR PRN #15 tab 04/24/17 5-325 mg] predniSONE 20 mg PO BID #8 tab 10/21/17 Allergies Allergy/AdvReac Type Severity Reaction Status Date / Time No Known Allergies Allergy Verified 04/15/18 16:14 Review of Systems ROS Statement: Those systems with pertinent positive or pertinent negative responses have been documented in the HPI. ROS Other: All systems not noted in ROS Statement are negative. Past Medical History Past Medical History: Cancer, Hypertension, Skin Disorder Additional Past Medical History / Comment(s): basal cell ca, STEPHEN History of Any Multi-Drug Resistant Organisms: None Reported Past Surgical History: Cholecystectomy, Tonsillectomy Past Anesthesia/Blood Transfusion Reactions: No Reported Reaction Past Psychological History: No Psychological Hx Reported Smoking Status: Never smoker Past Alcohol Use History: Occasional Past Drug Use History: None Reported General Exam - General Exam Comments Initial Comments: Constitutional: NAD, AOX3, Pt has pleasant affect. HEENT: NC/AT, trachea midline, neck supple, no lymphadenopathy. Posterior pharynx non erythematous, without exudates. External ears appear normal, without discharge. Mucous membranes moist. Eyes PERRLA, EOM intact. There is no scleral icterus. No pallor noted. Cardiopulmonary: RRR, no murmurs, rubs or gallops, no JVD noted. Lungs CTAB in anterior and posterior strong. No peripheral edema. Abdominal exam: Abdomen soft and non-distended. Abdomen non-tender to palpation in all 4 quadrants. Bowel sounds active in LLQ. No hepatosplenomegaly. No ecchymosis Neuro: CN II-XII grossly intact. No nuchal rigidity. MSK: No posterior calf tenderness bilaterally, homans sign negative bilaterally. Posterior tibialis and radial pulse +2 bilaterally. Sensation intact in upper and lower extremities. Full active ROM in upper and lower extremities, 5/5 stregnth. Limitations: no limitations Course Vital Signs 04/15/18 04/15/18 16:18 16:40 Temperature 97.5 F L Pulse Rate 110 H 70 Respiratory 20 Rate Blood Pressure 155/90 O2 Sat by Pulse 95 Oximetry Medical Decision Making - Medical Decision Making 47-year-old male patient presents to ED after needlestick. Patient denies other complaints. Patient vital signs stable, afebrile. Patient denies HIV prophylaxis. Patient contacted with rapid HIV screen of patient, which was negative. Patient was understanding. Patient to be contacted by lab when further investigations are completed. Case discussed in depth with Dr. Metcalf. Disposition Clinical Impression: Needlestick injury accident Disposition: HOME SELF-CARE Condition: Stable Instructions (If sedation given, give patient instructions): Needle Stick Injuries (ED) Additional Instructions: Patient to adhere to previously discussed treatment plan and will take medication(s) as directed. Patient to follow up with PCP in 1-2 days. Patient to return to ED if symptoms do not improve. Is patient prescribed a controlled substance at d/c from ED?: No Referrals: Mike Jurado III, MD [Primary Care Provider] - 1-2 days Time of Disposition: 16:37
[2018-04-15 16:55] VITALS: PULSE 70
== END 2018-04-15 16:40 | disposition home or self-care (01) ==
LOC: EC 16:11
DX: Z77.21 Contact with and (suspected) exposure to potentially hazardous body fluids (principal); I10 Essential (primary) hypertension; Z79.899 Other long term (current) drug therapy; Z85.828 Personal history of other malignant neoplasm of skin; W46.0XXA Contact with hypodermic needle, initial encounter; Y92.69 Other specified industrial and construction area as the place of occurrence of the external cause; Y99.0 Civilian activity done for income or pay
CPT/HCPCS: 99283

== ENCOUNTER → 2018-12-31 | Outpatient (CLI) | payer MEDICAID ==
--- NOTE | 2018-12-31 20:10 | PN ---
PROGRESS NOTE This is a 48-year-old male patient coming in for a compliancy check. This is an annual check regarding obstructive sleep apnea. The patient has severe STEPHEN and the patient is on CPAP therapy for now. Note that his baseline AHI is 50, and the patient is receiving CPAP therapy at a pressure of 11 cm of water. His Phoenix score is down to 3. He is averaging about 7.2 hours of CPAP use per night. His CPAP use for more than 4 hours is 100%. Leak is at 40 L/minute and his AHI is down to 1.4. He has gained some weight. He used to weight 218 pounds and currently he weighs 224, and his blood pressure is noted to be slightly elevated on today's evaluation. Nevertheless, he is feeling great. He feels improved. He feels refreshed. No major hypersomnia or sleepiness during the day. PHYSICAL EXAMINATION: VITAL SIGNS: BP is 155/97, pulse 86, respirations 16, temperature 98.0, saturation 95% on room air. Height is 5 feet 11 inches, weight 224, and BMI is 31.2. GENERAL APPEARANCE: Calm, comfortable. HEAD: Atraumatic, normocephalic. NECK: Supple. No JVD. No goiter or neck masses. Mallampati class IV. LUNGS: Clear to auscultation. HEART: Heart sounds are regular rate and rhythm. Normal S1, S2. No S3, S4. No murmurs. ABDOMEN: Soft, nontender. No organomegaly. EXTREMITIES: No edema. No cyanosis or clubbing. NEUROLOGIC: Alert and oriented x3. No focal neurological deficits. PSYCHIATRIC: Negative for anxiety or depression. IMPRESSION: 1. Severe obstructive sleep apnea with an apnea/hypopnea index of 50, currently on CPAP with a pressure of 10 cm with successful treatment. The patient remains compliant. 2. Hypersomnia, recovered. Phoenix score is down to 3. 3. Hypertension. PLAN: 1. Weight loss. 2. Tight control of blood pressure. 3. Compliance data was checked and the numbers looked good. The patient is compliant. He continues to use his CPAP effectively and efficiently. He will keep the same mask interface. He is using a DreamWear nose mask. The patient will see me back in a year's time in followup, earlier if needed. MMODL / IJN: [id number] /
== END | disposition home or self-care (01) ==
LOC: SLEEP 13:05
PROVIDERS: ATTEND Internal Medicine Critical Care Medicine
DX: G47.33 Obstructive sleep apnea (adult) (pediatric) (principal); I10 Essential (primary) hypertension; Z99.89 Dependence on other enabling machines and devices

== ENCOUNTER → 2019-06-26 | Outpatient (CLI) | payer MEDICAID ==
[2019-06-26 18:33] LABS: Estradiol 73.5 pg/mL
== END | disposition home or self-care (01) ==
LOC: LABWHC1 11:27
PROVIDERS: ATTEND Obstetrics & Gynecology
DX: E34.50 Androgen insensitivity syndrome, unspecified (principal)
CPT/HCPCS: 36415; 82670; 84402; 84403

== ENCOUNTER 2019-12-06 20:48 | Emergency (ER) | payer MEDICAID ==
[2019-12-06 21:00] VITALS: BP 153/94; PULSE 99; RESP 16; TEMP 98.1
[2019-12-06] MEDS ORDERED: diphenhydrAMINE 50 MG/ML 1 ML VIAL IM STA (21:22)
[2019-12-06] MEDS ORDERED: FAMOTIDINE 20 MG TAB PO STA (21:22)
[2019-12-06] MEDS ORDERED: methylPREDNISolone SOD SUCCI 125 MG/2 ML VIAL IM ONE (21:22)
--- NOTE | 2019-12-06 21:23 | ED ---
Allergic Reaction HPI - General Chief complaint: Allergic Reaction Stated complaint: Bee sting, facial swelling Time Seen by Provider: 12/06/19 21:16 Source: patient, family Mode of arrival: ambulatory Limitations: no limitations - History of Present Illness Initial Comments: 49-year-old male patient presents to the emergency department today for evaluat ion of right-sided facial swelling. Patient states approximately 3 hours ago he was stung by a bee to the area beneath his right eye. Patient states over the last 3 hours to the right side of his face has become swollen. Patient denies any difficulty with vision. States he is having some clear drainage from the right eye. He denies any lip, tongue, or throat swelling. Denies any shortness of breath. Denies any abdominal pain or vomiting. Patient has not taken any medication for his symptoms. 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 Patient denies any recent rash, fever, chills, cough, chest pain, diarrhea, constipation, back pain, numbness, tingling, dizziness, weakness, hematuria, dysuria, urinary urgency, urinary frequency, headache, visual changes, or any other complaints. - Related Data Home Medications Medication Instructions Recorded Confirmed Cholecalciferol [Vitamin D3 (25 1,000 unit PO DAILY 04/22/17 04/22/17 Mcg = 1000 Iu)] Dim 1 cap PO BID 04/22/17 04/22/17 Methylfolate 15 mg PO DAILY 04/22/17 04/22/17 Multivitamins, Thera [Multivitamin 1 tab PO DAILY 04/22/17 04/22/17 (formulary)] lisinopriL 40 mg PO HS 04/22/17 04/22/17 Previous Rx's Medication Instructions Recorded oxyCODONE-APAP 5-325MG [Percocet 1 each PO Q6HR PRN #15 tab 04/24/17 5-325 mg] predniSONE [Deltasone] 20 mg PO BID #8 tab 10/21/17 Famotidine [Pepcid] 20 mg PO DAILY #3 tablet 12/06/19 predniSONE 50 mg PO DAILY #3 tab 12/06/19 Allergies Allergy/AdvReac Type Severity Reaction Status Date / Time bee venom protein (honey bee) Allergy Swelling Verified 12/06/19 21:01 lisinopril Allergy Unknown Verified 12/06/19 21:01 Review of Systems ROS Statement: Those systems with pertinent positive or pertinent negative responses have been documented in the HPI. ROS Other: All systems not noted in ROS Statement are negative. Past Medical History Past Medical History: Cancer, Hypertension, Skin Disorder Additional Past Medical History / Comment(s): basal cell ca, STEPHEN History of Any Multi-Drug Resistant Organisms: None Reported Past Surgical History: Cholecystectomy, Tonsillectomy Past Anesthesia/Blood Transfusion Reactions: No Reported Reaction Past Psychological History: No Psychological Hx Reported Smoking Status: Never smoker Past Alcohol Use History: Occasional Past Drug Use History: None Reported General Exam Limitations: no limitations General appearance: alert, in no apparent distress, other (This is a well- developed, well-nourished adult male patient in no acute distress. Vital signs upon presentation are temperature 98.1F, pulse 99, respirations 16, blood pressure 153/94, pulse ox 97% on room air.) Eye exam: Present: normal appearance, PERRL, EOMI. Absent: scleral icterus, conjunctival injection, periorbital swelling ENT exam: Present: normal oropharynx, mucous membranes moist, other (Patient has right-sided facial swelling encompassing the right periorbital region. There is no erythema. There is clear drainage from the eye. No conjunctival injection or chemosis noted. No swelling noted to the lips, tongue, or throat. ). Absent: normal exam Respiratory exam: Present: normal lung sounds bilaterally. Absent: respiratory distress, wheezes, rales, rhonchi, stridor Cardiovascular Exam: Present: regular rate, normal rhythm, normal heart sounds. Absent: systolic murmur, diastolic murmur, rubs, gallop, clicks GI/Abdominal exam: Present: soft, normal bowel sounds. Absent: distended, tenderness, guarding, rebound, rigid Neurological exam: Present: alert, oriented X3, CN II-XII intact Psychiatric exam: Present: normal affect, normal mood Skin exam: Present: warm, dry, intact, normal color. Absent: rash Course Vital Signs 12/06/19 20:57 Temperature 98.1 F Pulse Rate 99 Respiratory 16 Rate Blood Pressure 153/94 O2 Sat by Pulse 97 Oximetry Medical Decision Making - Medical Decision Making 49-year-old male patient presents to the emergency department today for evaluation of right-sided facial swelling after a bee sting. Physical examination did reveal swelling to the right side of the face surrounding the right eye and over the right maxillary region. There is no overlying erythema. Patient has no lip, tongue, or throat swelling. He is breathing without difficulty. Sting occurred about 3 hours ago he was given IM doses of Benadryl and Solu-Medrol. He will be discharged with prescriptions for Pepcid and prednisone. Instructed take Benadryl every 6 hours as needed. He is instructed to follow-up with his primary care physician for recheck in 1-2 days. Return parameters were discussed in detail. Patient verbalizes understanding and agrees with this plan. Disposition Clinical Impression: Bee sting, Periorbital edema of right eye Disposition: HOME SELF-CARE Condition: Good Instructions (If sedation given, give patient instructions): Insect Bite or Sting (ED), General Allergic Reaction (ED) Additional Instructions: Apply cool compresses to the right side of the face. Take medications as directed. Take Benadryl every 6 hours as needed. Follow-up with her primary care physician for recheck in 1-2 days. Return to the emergency department immediately for any new, worsening, or concerning symptoms. Prescriptions: Famotidine [Pepcid] 20 mg PO DAILY #3 tablet predniSONE 50 mg PO DAILY #3 tab Is patient prescribed a controlled substance at d/c from ED?: No Referrals: Mike Jurado III, MD [Primary Care Provider] - 1-2 days Time of Disposition: 21:23
== END 2019-12-06 22:00 | disposition home or self-care (01) ==
LOC: EC 20:48
DX: T63.441A Toxic effect of venom of bees, accidental (unintentional), initial encounter (principal); I10 Essential (primary) hypertension; Z79.899 Other long term (current) drug therapy; Z88.8 Allergy status to other drugs, medicaments and biological substances; Z91.030 Bee allergy status; Z85.828 Personal history of other malignant neoplasm of skin
CPT/HCPCS: 99282; 96372 ×2; J1200; J2930

== ENCOUNTER → 2020-01-06 | Outpatient (CLI) | payer MEDICAID ==
--- NOTE | 2020-01-06 16:31 | PN ---
PROGRESS NOTE A 49-year-old male patient with known history of obstructive sleep apnea with an AHI of 50, currently on CPAP. Patient is currently being treated with a CPAP pressure of 11 cm of water. Doing extremely well. Remains very compliant. He is using a Dream Wear under the nose medium size. Based on a 30-day compliance, he has been utilizing his machine every night. He is averaging around 7.1 hours of CPAP use per night. His AHI is down to 1.4 and he is alert and awake during the day. His blood pressure is under good control and no major hypersomnia or sleepiness during the day. 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 He is driving a car and does not fall asleep. REVIEW OF SYSTEMS: Fourteen-point review of system was done, positive findings are mentioned in history of present illness. BP is 146/95, pulse 90, respirations 16, temperature 98.7, saturation 96% on room air. Height is 5, 11, weight is 226, BMI 31.6. GENERAL APPEARANCE: Calm, comfortable. Head is atraumatic, normocephalic. NECK: Supple, there is no JVD. No goiter. No goiter or neck masses, Mallampati class 4. LUNGS: Clear to auscultation. HEART: Heart sounds are regular rate and rhythm, normal S1, S2. No S3, S4. No murmurs. ABDOMEN: Soft, nontender, no organomegaly. EXTREMITIES: No edema, no cyanosis or clubbing. NEUROLOGIC: Awake and alert, there is no focal neurological deficit. IMPRESSION: 1. Obstructive sleep apnea, AHI of 50, consistent with severe disease. The patient is on CPAP pressure of 11 cm of water. 2. Hypertension. PLAN: 1. Continue CPAP therapy at the same level of pressure. 2. Encourage weight loss. 3. Implement good sleep hygiene measures. 4. Treatment is successful, no need for any adjustments. Weight has been stable. Continue with the same mask interface usage, which is a Dream Wear under the nose. Will see him back in a year's time, earlier if needed. MMODL / IJN: [id number] /
== END | disposition home or self-care (01) ==
LOC: SLEEP 13:41
PROVIDERS: ATTEND Internal Medicine Critical Care Medicine
DX: G47.33 Obstructive sleep apnea (adult) (pediatric) (principal); I10 Essential (primary) hypertension; Z99.89 Dependence on other enabling machines and devices

== ENCOUNTER → 2020-02-13 | Outpatient (CLI) | payer MEDICAID | END | disposition home or self-care (01) | LOC: LABMAIN 09:13 | PROVIDERS: ATTEND Family Medicine | DX: Z20.828 Contact with and (suspected) exposure to other viral communicable diseases (principal) | CPT/HCPCS: 36415 ==

== ENCOUNTER 2020-08-11 07:12 | Day surgery (SDC) | payer MEDICAID ==
[2020-08-09 14:52] VITALS: BMI 30.5
[2020-08-11 07:55] VITALS: RESP 16; TEMP 98
[2020-08-11] MEDS ORDERED: LACTATED RINGERS 1,000 ML IV ONE (07:56)
[2020-08-11] MEDS ORDERED: LIDOCAINE 1% (10MG/ML) FOR IV START INTRADERMA ONE (07:57)
[2020-08-11] MEDS ORDERED: PROPOFOL 10 MG/ML 20 ML VIAL IV ONE (08:27)
--- NOTE | 2020-08-11 08:35 | P.GSHP ---
History of Present Illness H&P Date: 08/11/20 CHIEF COMPLAINT: Colon screen HISTORY OF PRESENT ILLNESS: The patient is a 49-year-old male who presents for colon screen. Lower endoscopy was offered for further evaluation and management. PAST MEDICAL HISTORY: Please see list. PAST SURGICAL HISTORY: Please see list. MEDICATIONS: Please see list. ALLERGIES: Please see list. SOCIAL HISTORY: No illicit drug use FAMILY HISTORY: No reports of Crohn disease or ulcerative colitis. REVIEW OF ORGAN SYSTEMS: CONSTITUTIONAL: No reports of fevers or chills. PHYSICAL EXAM: VITAL SIGNS: Stable GENERAL: Well-developed pleasant in no acute distress. HEENT: No scleral icterus. Extraocular movements grossly intact. Moist buccal mucosa. NECK: Supple without lymphadenopathy. CHEST: Unlabored respirations. Equal bilateral excursions. CARDIOVASCULAR: Regular rate and rhythm. Distal 2+ pulses. ABDOMEN: Soft, nontender, nondistended. MUSCULOSKELETAL: No clubbing, cyanosis, or edema. ASSESSMENT: 1. Colon screen. PLAN: 1. Recommend proceeding with a lower endoscopy Past Medical History Past Medical History: Cancer, Hypertension, Sleep Apnea/CPAP/BIPAP Additional Past Medical History / Comment(s): basal cell ca, STEPHEN,uses cpap, MTHFR gene mutation History of Any Multi-Drug Resistant Organisms: None Reported Past Surgical History: Cholecystectomy, Tonsillectomy Past Anesthesia/Blood Transfusion Reactions: No Reported Reaction Smoking Status: Never smoker - Past Family History Father Family Medical History: Cancer Additional Family Medical History / Comment(s): thyroid CA Mother Family Medical History: Cancer Additional Family Medical History / Comment(s): breast CA Medications and Allergies Home Medications Medication Instructions Recorded Confirmed Type Cholecalciferol [Vitamin D3 (25 25 mcg PO DAILY 04/22/17 08/11/20 History Mcg = 1000 Iu)] Dim 1 cap PO BID 04/22/17 08/11/20 History Methylfolate 15 mg PO DAILY 04/22/17 08/11/20 History Multivitamins, Thera [Multivitamin 1 tab PO DAILY 04/22/17 08/11/20 History (formulary)] Losartan Potassium [Cozaar] 100 mg PO QAM 08/09/20 08/11/20 History amLODIPine [Norvasc] 10 mg PO QAM 08/09/20 08/11/20 History Allergies Allergy/AdvReac Type Severity Reaction Status Date / Time bee venom protein (honey bee) Allergy Swelling Verified 08/11/20 07:46 lisinopril AdvReac Cough Verified 08/11/20 07:46 Surgical - Exam Vital Signs Temp Pulse Resp BP Pulse Ox 98.0 F 82 16 139/85 98 08/11/20 07:54 08/11/20 07:54 08/11/20 07:54 08/11/20 07:54 08/11/20 07:54
--- NOTE | 2020-08-11 08:56 | P.PCN ---
Date of Procedure: 08/11/20 Description of Procedure: PREOPERATIVE DIAGNOSIS: Colonoscopy screening. Family history colon cancer grandmother Family history colon polyps, sister POSTOPERATIVE DIAGNOSIS: Colonoscopy screening. Hemorrhoids, grade 2 OPERATION: Colonoscopy to the cecum, ileocecal valve and appendiceal orifice. SURGEON: Harini Cee MD. ANESTHESIA: MAC. INDICATIONS: The patient is a 49-year-old male who presents for his first colonoscopy screening. Benefits and risks were described and informed consent was obtained. DESCRIPTION OF PROCEDURE: The patient had undergone Sutab prep. The patient had been brought into the operating room and laid in the left lateral decubitus position. After adequate intravenous sedation, the rectum was examined with 2% lidocaine jelly. External hemorrhoids were encountered. The prostate was unremarkable. The rectal tone was within normal limits. No lesions were palpated in the rectal vault. An Olympus colonoscope was advanced until the cecum, ileocecal valve and appendiceal orifice were clearly viewed. The prep was fair. No scattered diverticulosis was encountered. No colonic polyps were found. No evidence of focal colitis was found. Retroflexion of the scope demonstrated grade 2 internal hemorrhoids without active bleeding or inflammation. The colon was desufflated. The patient had tolerated the procedure well. Withdrawal time was over 6 minutes. FINDINGS: Aronchick preparation quality scale 3 (1-5) Internal hemorrhoids, grade 2 External prolapsed hemorrhoids, grade 2 No arteriovenous malformations. No adenomatous polyps. No focal colitis. RECOMMENDATIONS: Lower endoscopy in 5 years, 2025, high risk family history Plan - Discharge Summary Discharge Rx Participant: No New Discharge Prescriptions: Continue Methylfolate 15 mg PO DAILY Multivitamins, Thera [Multivitamin (formulary)] 1 tab PO DAILY Cholecalciferol [Vitamin D3 (25 Mcg = 1000 Iu)] 25 mcg PO DAILY Dim 1 cap PO BID Losartan Potassium [Cozaar] 100 mg PO QAM amLODIPine [Norvasc] 10 mg PO QAM Discharge Medication List Cholecalciferol [Vitamin D3 (25 Mcg = 1000 Iu)] 25 mcg PO DAILY 04/22/17 [History] Dim 1 cap PO BID 04/22/17 [History] Methylfolate 15 mg PO DAILY 04/22/17 [History] Multivitamins, Thera [Multivitamin (formulary)] 1 tab PO DAILY 04/22/17 [History] Losartan Potassium [Cozaar] 100 mg PO QAM 06/07/21 [History] amLODIPine [Norvasc] 10 mg PO QAM 08/09/20 [History] Follow up Appointment(s)/Referral(s): Harini Cee MD [STAFF PHYSICIAN] - As Needed Patient Instructions/Handouts: *[facility] - (Anesthesia) Endoscopy Discharge Instructions, Colonoscopy (DC) Activity/Diet/Wound Care/Special Instructions: Repeat colonoscopy 5 years, 2025 Discharge Disposition: HOME SELF-CARE
[2020-08-11 09:13] VITALS: BP 116/75; PULSE 66
== END 2020-08-11 09:27 | disposition home or self-care (01) ==
LOC: ORWHC2ENDO 07:12
PROVIDERS: ATTEND Surgery Plastic and Reconstructive Surgery
DX: Z12.11 Encounter for screening for malignant neoplasm of colon (principal); K64.1 Second degree hemorrhoids; Z80.0 Family history of malignant neoplasm of digestive organs; Z83.71 Family history of colonic polyps; I10 Essential (primary) hypertension; G47.33 Obstructive sleep apnea (adult) (pediatric); Z85.828 Personal history of other malignant neoplasm of skin; E72.12 Methylenetetrahydrofolate reductase deficiency; Z90.49 Acquired absence of other specified parts of digestive tract; Z90.89 Acquired absence of other organs; Z80.3 Family history of malignant neoplasm of breast; Z80.8 Family history of malignant neoplasm of other organs or systems; Z79.3 Long term (current) use of hormonal contraceptives; Z79.899 Other long term (current) drug therapy; Z88.8 Allergy status to other drugs, medicaments and biological substances; Z91.030 Bee allergy status
CPT/HCPCS: J2704; G0105

== ENCOUNTER → 2020-10-07 | Outpatient (CLI) | payer MEDICAID ==
[2020-10-07 19:34] LABS: HCT 44.5 % (39.6-50.0); HGB 14.3 g/dL (13.0-17.0); MCH 31.2 pg (27.0-32.0); MCHC 32.1 g/dL (32.0-37.0); MCV 97.2 fL (80.0-97.0); Mean Platelet Volume 10.8 fL (9.5-12.2); Platelet Count 174 X 10*3/uL (140-440); RBC 4.58 X 10*6/uL (4.40-5.60); RDW 15.3 % (11.5-14.5); WBC 4.96 X 10*3/uL (4.50-10.00)
[2020-10-07 22:37] LABS: Estradiol 88.5 pg/mL
[2020-10-07 22:40] LABS: PSA Annual Screen 1.6 ng/mL (0.0-4.0)
== END | disposition home or self-care (01) ==
LOC: LABWHC1 10:04
PROVIDERS: ATTEND Obstetrics & Gynecology
DX: R53.83 Other fatigue (principal); R37 Sexual dysfunction, unspecified; E34.50 Androgen insensitivity syndrome, unspecified
CPT/HCPCS: 82670; 85027; 84402; 84403; 36415; G0103

== ENCOUNTER → 2021-01-12 | Outpatient (CLI) | payer MEDICAID, OTHER | END | disposition home or self-care (01) | LOC: LABWHC1 09:44 | PROVIDERS: ATTEND Emergency Medicine | DX: Z20.822 Contact with and (suspected) exposure to COVID-19 (principal) | CPT/HCPCS: 87635 ==

== ENCOUNTER → 2021-01-13 | Outpatient (CLI) | payer MEDICAID, OTHER | END | disposition home or self-care (01) | LOC: LABWHC1 12:23 | PROVIDERS: ATTEND Emergency Medicine | DX: Z20.822 Contact with and (suspected) exposure to COVID-19 (principal) | CPT/HCPCS: 87635 ==

== ENCOUNTER → 2022-06-26 | Outpatient (CLI) | payer MEDICAID ==
[2022-06-26 15:32] LABS: Basophils # (A) 0.03 X 10*3/uL (0.00-0.10); Basophils % (A) 0.7 %; Eosinophils # (A) 0.23 X 10*3/uL (0.04-0.35); Eosinophils % (A) 5.6 %; HCT 44.2 % (39.6-50.0); HGB 13.8 g/dL (13.0-17.0); Immature Grans, Automated 0.2 %; Lymphocytes # (A) 1.42 X 10*3/uL (0.90-5.00); Lymphocytes % (A) 34.5 %; MCH 30.7 pg (27.0-32.0); MCHC 31.2 g/dL (32.0-37.0); MCV 98.4 fL (80.0-97.0); Mean Platelet Volume 11.5 fL (9.5-12.2); Monocytes # (A) 0.45 X 10*3/uL (0.20-1.00); Monocytes % (A) 10.9 %; NRBC Per 100 WBC 0 /100 WBCS (0.0-0.0); Neutrophils # (A) 1.98 X 10*3/uL (1.80-7.70); Neutrophils % (A) 48.1 %; Platelet Count 181 X 10*3/uL (140-440); RBC 4.49 X 10*6/uL (4.40-5.60); RDW 13.9 % (11.5-14.5); WBC 4.12 X 10*3/uL (4.50-10.00)
[2022-06-26 15:43] LABS: ALT 20 U/L (10-49); AST 19 U/L (14-35); African American GFR (CKD) 115.1 (60.0-200.0); Albumin 4.8 g/dL (3.8-4.9); Albumin/Globulin Ratio 2.07 (1.60-3.17); Alkaline Phosphatase 68 U/L (41-126); BUN/Creat Ratio 9.33 Ratio (12.00-20.00); Blood Urea Nitrogen 8.1 mg/dL (9.0-27.0); Calcium 9.8 mg/dL (8.7-10.3); Carbon Dioxide 27.5 mmol/L (20.0-27.5); Chloride 106 mmol/L (96-109); Chol/HDL Ratio 2.57 Ratio; Globulin 2.3 g/dL (1.6-3.3); Glucose 101 mg/dL (70-110); LDL Cholesterol,Calculated 101.9 mg/dL (0.0-131.0); Non-African American GFR(CKD) 99.3 (60.0-200.0); Potassium 4.5 mmol/L (3.5-5.5); Sodium 145 mmol/L (135-145); VLDL Calculation 12.96 mg/dL (5.00-40.00)
== END | disposition home or self-care (01) ==
LOC: LABWHC1 07:11
PROVIDERS: ATTEND Family Medicine
DX: Z13.220 Encounter for screening for lipoid disorders (principal); I10 Essential (primary) hypertension; F33.8 Other recurrent depressive disorders; L03.115 Cellulitis of right lower limb; E55.9 Vitamin D deficiency, unspecified; G47.33 Obstructive sleep apnea (adult) (pediatric)
CPT/HCPCS: 36415; 80053; 80061; 82306; 84153; 85025

== ENCOUNTER → 2022-07-17 | Outpatient (CLI) | payer MEDICAID ==
--- NOTE | 2022-07-17 14:58 | US ---
EXAMINATION TYPE: US thyroid st tissue head/neck DATE OF EXAM: 07/17/2022 COMPARISON: NONE CLINICAL INDICATION: Male, 51 years old with history of E04.9, R13.13 DYSPHAGIA, NONTOXIC GOITER; Pat ient states doctor felt thyroid was enlarged. Not on thyroid meds. GLAND SIZE: Right Lobe: 4.4 x 1.0 x 2.7 cm Overall Parenchyma: homogenous Left Lobe: 5.4 x 3.7 x 3.3 cm Overall Parenchyma: homogeneous Isthmus Thickness: 0.3 cm NODULES RIGHT: # of nodules measured on right: 0 LEFT: # of nodules measured on left: 1 1. 4.6 X 3.6 x 3.5 cm, mid mid, mixed cystic and solid, isoechoic nodule, which is wider than tall, with ill-defined margins, without echogenic foci. TR2 Prior size: No prior ISTHMUS: # of nodules measured in the isthmus: 0 Bilateral neck scanned, no evidence of lymphadenopathy. IMPRESSION: Large benign-appearing left lobe thyroid nodule 2017 ACR TI-RADS LEVEL: TR-RADS 2 - Not Suspicious: No FNA *Highest TI-RADS level nodule reported
== END | disposition home or self-care (01) ==
LOC: RADUSWWP 14:07
PROVIDERS: ATTEND Family Medicine
DX: E04.2 Nontoxic multinodular goiter (principal); R13.13 Dysphagia, pharyngeal phase
CPT/HCPCS: 76536

== ENCOUNTER → 2022-08-02 | Outpatient (CLI) | payer MEDICAID ==
[2022-08-02 15:22] LABS: T4, Free (Free Thyroxine) 1.32 ng/dL (0.800-1.800)
== END | disposition home or self-care (01) ==
LOC: LABWHC1 08:45
PROVIDERS: ATTEND Internal Medicine Endocrinology, Diabetes & Metabolism
DX: E04.1 Nontoxic single thyroid nodule (principal)
CPT/HCPCS: 36415; 84439; 84443

== ENCOUNTER → 2022-08-25 | Outpatient (CLI) | payer MEDICAID ==
[2022-08-25 17:29] LABS: INR 0.9 (<1.2); Partial Thromboplastin Time 25.5 sec (22.0-30.0); Prothrombin Time 9.7 sec (9.0-12.0)
[2022-08-26 03:07] LABS: HCT 45.4 % (39.6-50.0); HGB 14.3 d/dL (12.0-15.0); MCH 30.7 pg (27.0-32.0); MCHC 31.5 d/dL (32.0-37.0); MCV 97.4 FL (80.0-97.0); Mean Platelet Volume 11.4 FL (9.5-12.2); NRBC Per 100 WBC 0 X 10*3/uL (0.00-0.01); Platelet Count 192 X 10*3/uL (140-440); RBC 4.66 X 10*6/uL (4.40-5.60); RDW 14.2 % (11.5-14.5); WBC 6.28 X 10*3/uL (4.50-10.00)
== END | disposition home or self-care (01) ==
LOC: LABWHC1 15:36
PROVIDERS: ATTEND Internal Medicine Endocrinology, Diabetes & Metabolism
DX: E04.1 Nontoxic single thyroid nodule (principal); E83.52 Hypercalcemia; Z86.39 Personal history of other endocrine, nutritional and metabolic disease
CPT/HCPCS: 36415; 82306; 82330; 83970; 85027; 85610; 85730

== ENCOUNTER → 2022-11-15 | Outpatient (CLI) | payer MEDICAID ==
[2022-11-15 11:48] LABS: Basophils # (A) 0.05 X 10*3/uL (0.00-0.10); Basophils % (A) 0.9 %; Eosinophils # (A) 0.38 X 10*3/uL (0.04-0.35); Eosinophils % (A) 7.1 %; HCT 44.8 % (39.6-50.0); HGB 14.2 d/dL (13.0-17.0); Lymphocytes # (A) 1.76 X 10*3/uL (0.90-5.00); Lymphocytes % (A) 32.7 %; MCHC 31.7 d/dL (32.0-37.0); MCV 94.5 FL (80.0-97.0); Mean Platelet Volume 11.7 FL (9.5-12.2); Monocytes # (A) 0.41 X 10*3/uL (0.20-1.00); Monocytes % (A) 7.6 %; NRBC Per 100 WBC 0 X 10*3/uL (0.00-0.01); Neutrophils # (A) 2.75 X 10*3/uL (1.80-7.70); Neutrophils % (A) 51.1 %; Platelet Count 87 X 10*3/uL (140-440); RBC 4.74 X 10*6/uL (4.40-5.60); RDW 14.5 % (11.5-14.5); WBC 5.38 X 10*3/uL (4.50-10.00)
[2022-11-15 17:12] LABS: % Iron Saturation 22.81 (15.00-50.00); ALT 26 U/L (10-49); AST 20 U/L (14-35); Albumin 4.7 d/dL (3.8-4.9); Albumin/Globulin Ratio 1.96 Ratio (1.60-3.17); Alkaline Phosphatase 69 U/L (41-126); Blood Urea Nitrogen 10.8 mg/dL (9.0-27.0); Calcium 9.6 mg/dL (8.7-10.3); Carbon Dioxide 26.2 mmol/L (21.6-31.8); Chloride 104 mmol/L (96-109); Chol/HDL Ratio 2.57 Ratio; Globulin 2.4 d/dL (1.6-3.3); Glucose 98 mg/dL (70-110); Iron 86 UG/DL (65-175); LDL Cholesterol,Calculated 92.7 mg/dL (0.0-131.0); Potassium 4.6 mmol/L (3.5-5.5); Sodium 142 mmol/L (135-145); Total Bilirubin 0.3 mg/dL (0.3-1.2); Total Iron Binding Capacity 377 UG/DL (228-460); Total Protein 7.1 d/dL (6.2-8.2); VLDL Calculation 10.04 mg/dL (5.00-40.00)
== END | disposition home or self-care (01) ==
LOC: LABWHC1 07:18
PROVIDERS: ATTEND Internal Medicine
DX: Z12.5 Encounter for screening for malignant neoplasm of prostate (principal); Z11.59 Encounter for screening for other viral diseases; I10 Essential (primary) hypertension; E04.1 Nontoxic single thyroid nodule; Z15.89 Genetic susceptibility to other disease; Z86.39 Personal history of other endocrine, nutritional and metabolic disease
CPT/HCPCS: 86803; 80061; 80053; 82607; 82728; 82746; 83540; 83550; 84436; 84443; 85025; 84270; 82040; 84403; 36415; G0103

== ENCOUNTER → 2022-11-16 | Outpatient (CLI) | payer MEDICAID ==
--- NOTE | 2022-11-16 21:20 | MR ---
EXAMINATION TYPE: MR brain wo/w MRA Neck wo/wcon DATE OF EXAM: 11/16/2022 COMPARISON: NONE HISTORY: 52-year-old male Headaches, family hx aneurysm. TECHNIQUE: Multiplanar, multisequence images of the brain and brainstem were acquired before and aft er administration of 10 mL IV Gadavist. Diffusion weighted imaging is performed. Additional multipl kelsey, multisequence images of the neck before and after IV contrast. Subtraction images were utilized . FINDINGS: BRAIN: No evidence for acute infarction, hemorrhage, mass, mass effect, midline shift, herniation, effacemen t of basal cisterns, or extra-axial fluid collection. The ventricles and sulci are age-appropriate. Major intracranial flow voids are intact. T2/FLAIR weighted sequences show no white matter signal abnormality. Incidental partially empty sella. Otherwise, midline structures demonstrate normal morphology. The c raniocervical junction is normal. Post contrast images demonstrate no evidence of pathologic enhancement. Dural venous sinuses are pat ent. Extensive fluid opacification left mastoid air cells. While the globes are intact, there is prominent CSF along the optic nerve sheath. Mild mucosal thicke eliu ethmoid air cells. 2.3 cm mucosal retention cyst floor right maxillary sinus. CTA NECK: There is conventional arch vessel branching anatomy. The common and internal carotid arteries as well as the bilateral vertebral arteries are widely patent. No significant stenosis. NASCET criteria was utilized. Only a portion of the intracranial circulation is visualized and shows no evident aneurysm . IMPRESSION: BRAIN: 1. Prominent fluid along the optic nerve sheaths may be due to dural ectasia. However, given the pres ence of a partially empty sella, consider the possibility of pseudotumor cerebri. Correlate to exclud e any papilledema, any visual changes, and with further clinical assessment. 2. No acute intracranial abnormality otherwise seen. 3. Extensive fluid within the left-sided mastoid air cells. Correlate for any mastoid pain to exclude mastoiditis. CTA NECK: 4. Widely patent carotid and vertebral arteries of the neck.
== END | disposition home or self-care (01) ==
LOC: RADMRIMAIN 10:50
PROVIDERS: ATTEND Internal Medicine
DX: R51.9 Headache, unspecified (principal); H74.8X2 Other specified disorders of left middle ear and mastoid; Z82.49 Family history of ischemic heart disease and other diseases of the circulatory system
CPT/HCPCS: 70549; 70553; A9585

== ENCOUNTER → 2023-05-21 | Outpatient (CLI) | payer MEDICAID ==
[2023-05-21 16:17] LABS: ALT 35 U/L (10-49); AST 26 U/L (14-35); Albumin 4.9 g/dL (3.8-4.9); Albumin/Globulin Ratio 1.75 Ratio (1.60-3.17); Alkaline Phosphatase 75 U/L (41-126); BUN/Creat Ratio 11.33 Ratio (12.00-20.00); Blood Urea Nitrogen 10.2 mg/dL (9.0-27.0); Carbon Dioxide 27.2 mmol/L (21.6-31.8); Chloride 103 mmol/L (96-109); Globulin 2.8 g/dL (1.6-3.3); Glucose 101 mg/dL (70-110); LDL Cholesterol,Calculated 87.1 mg/dL (0.0-131.0); Potassium 4.1 mmol/L (3.5-5.5); Sodium 142 mmol/L (135-145); T4, Free (Free Thyroxine) 0.91 ng/dL (0.80-1.80); Total Bilirubin 0.2 mg/dL (0.3-1.2); Total Protein 7.7 g/dL (6.2-8.2); VLDL Calculation 11.14 mg/dL (5.00-40.00)
[2023-05-21 17:20] LABS: Basophils # (A) 0.08 X 10*3/uL (0.00-0.10); Basophils % (A) 1.5 %; Eosinophils # (A) 0.35 X 10*3/uL (0.04-0.35); Eosinophils % (A) 6.4 %; HCT 43.9 % (39.6-50.0); HGB 14.1 g/dL (13.0-17.0); MCH 30.2 pg (27.0-32.0); MCHC 32.1 g/dL (32.0-37.0); Mean Platelet Volume 11.4 FL (9.5-12.2); Monocytes # (A) 0.47 X 10*3/uL (0.20-1.00); Monocytes % (A) 8.6 %; NRBC Per 100 WBC 0 X 10*3/uL (0.00-0.01); Neutrophils # (A) 2.85 X 10*3/uL (1.80-7.70); Neutrophils % (A) 51.8 %; RBC 4.67 X 10*6/uL (4.40-5.60); RDW 15.8 % (11.5-14.5); WBC 5.49 X 10*3/uL (4.50-10.00)
== END | disposition home or self-care (01) ==
LOC: LABWHC1 09:52
PROVIDERS: ATTEND Internal Medicine
DX: I10 Essential (primary) hypertension (principal); E23.6 Other disorders of pituitary gland
CPT/HCPCS: 36415; 80053; 80061; 82040; 82533; 84146; 84270; 84403; 84439; 84443; 84481; 85025

== ENCOUNTER → 2023-05-31 | Outpatient (CLI) | payer MEDICAID ==
[2023-05-31 19:41] LABS: Basophils # (A) 0.09 X 10*3/uL (0.00-0.10); Basophils % (A) 1.4 %; Eosinophils % (A) 7.8 %; HCT 43.2 % (39.6-50.0); HGB 13.9 g/dL (13.0-17.0); Lymphocytes % (A) 32.6 %; MCH 29.6 pg (27.0-32.0); MCHC 32.2 g/dL (32.0-37.0); MCV 92.1 FL (80.0-97.0); Mean Platelet Volume 11.6 FL (9.5-12.2); Monocytes # (A) 0.48 X 10*3/uL (0.20-1.00); Monocytes % (A) 7.5 %; NRBC Per 100 WBC 0 X 10*3/uL (0.00-0.01); Neutrophils # (A) 3.24 X 10*3/uL (1.80-7.70); Neutrophils % (A) 50.2 %; Platelet Count 185 X 10*3/uL (140-440); RBC 4.69 X 10*6/uL (4.40-5.60); RDW 15.4 % (11.5-14.5); WBC 6.44 X 10*3/uL (4.50-10.00)
== END | disposition home or self-care (01) ==
LOC: LABWHC1 14:11
PROVIDERS: ATTEND Internal Medicine
DX: E23.6 Other disorders of pituitary gland (principal)
CPT/HCPCS: 36415; 82040; 84270; 84403; 85025

== ENCOUNTER → 2023-12-10 | Outpatient (CLI) | payer MEDICAID ==
--- NOTE | 2023-12-10 15:42 | US ---
EXAMINATION TYPE: US thyroid st tissue head/neck DATE OF EXAM: 12/10/2023 COMPARISON: 07/17/2022 CLINICAL INDICATION: Male, 53 years old with history of E04.1 THYROID NODULE; history of thyroid nodu le. left thyroidectomy 2022 TECHNIQUE: Grayscale and color Doppler imaging of the thyroid gland. FINDINGS: GLAND SIZE: Right Lobe: 4.0 x 1.4 x 1.4 cm Overall Parenchyma: homogeneous Left Lobe: Surgically absent Isthmus Thickness: 0.4 cm NODULES RIGHT: # of nodules measured on right: 0 LEFT: # of nodules measured on left: surgically absent ISTHMUS: # of nodules measured in the isthmus: 0 Bilateral neck scanned, no evidence of lymphadenopathy. IMPRESSION: Postsurgical change with no sizable thyroid nodule. 2017 ACR TI-RADS LEVEL: TR-RADS 1 - BENIGN: No FNA *Highest TI-RADS level nodule reported [email or web address] [facility], , 12/10/2023 3:40 PM
== END | disposition home or self-care (01) ==
LOC: RADUSWWP 14:54
PROVIDERS: ATTEND Internal Medicine Endocrinology, Diabetes & Metabolism
CPT/HCPCS: 76536

== ENCOUNTER → 2023-12-17 | Outpatient (CLI) | payer MEDICAID ==
[2023-12-17 16:21] LABS: T4, Free (Free Thyroxine) 0.94 ng/dL (0.80-1.80)
== END | disposition home or self-care (01) ==
LOC: LABWHC1 09:50
PROVIDERS: ATTEND Internal Medicine Endocrinology, Diabetes & Metabolism
DX: E04.1 Nontoxic single thyroid nodule (principal)
CPT/HCPCS: 36415; 84439; 84443

== ENCOUNTER → 2024-03-31 | Outpatient (CLI) | payer MEDICAID ==
[2024-03-31 15:11] LABS: Basophils # (A) 0.05 X 10*3/uL (0.00-0.10); Basophils % (A) 1.3 %; Eosinophils % (A) 5.3 %; HCT 44.7 % (39.6-50.0); Lymphocytes # (A) 1.07 X 10*3/uL (0.90-5.00); Lymphocytes % (A) 28.2 %; MCH 30.4 pg (27.0-32.0); MCHC 31.3 g/dL (32.0-37.0); MCV 97.2 FL (80.0-97.0); Mean Platelet Volume 12.2 FL (9.5-12.2); Monocytes # (A) 0.47 X 10*3/uL (0.20-1.00); Monocytes % (A) 12.4 %; NRBC Per 100 WBC 0 X 10*3/uL (0.00-0.01); Neutrophils % (A) 52.5 %; Platelet Count 148 X 10*3/uL (140-440); RDW 15.5 % (11.5-14.5)
[2024-03-31 15:50] LABS: BUN/Creat Ratio 14.25 Ratio (12.00-20.00); Blood Urea Nitrogen 11.4 mg/dL (9.0-27.0); Chloride 102 mmol/L (96-109); Chol/HDL Ratio 2.48 Ratio; Glucose 97 mg/dL (70-110); LDL Cholesterol,Calculated 68.4 mg/dL (0.0-131.0); Potassium 4.6 mmol/L (3.5-5.5); Sodium 140 mmol/L (135-145); VLDL Calculation 9.14 mg/dL (5.00-40.00)
[2024-03-31 15:51] LABS: ALT 48 U/L (10-49); AST 36 U/L (14-35); Albumin 4.5 g/dL (3.8-4.9); Albumin/Globulin Ratio 1.96 Ratio (1.60-3.17); Alkaline Phosphatase 65 U/L (41-126); Calcium 9.5 mg/dL (8.7-10.3); Carbon Dioxide 28.4 mmol/L (21.6-31.8); Globulin 2.3 g/dL (1.6-3.3); T4, Free (Free Thyroxine) 0.82 ng/dL (0.80-1.80); Total Bilirubin 0.5 mg/dL (0.3-1.2); Total Protein 6.8 g/dL (6.2-8.2)
== END | disposition home or self-care (01) ==
LOC: LABWHC1 08:28
PROVIDERS: ATTEND Internal Medicine
DX: Z12.5 Encounter for screening for malignant neoplasm of prostate (principal); I10 Essential (primary) hypertension; Z86.39 Personal history of other endocrine, nutritional and metabolic disease
CPT/HCPCS: 84439; 80061; 80053; 84443; 85025; 84270; 82040; 84403; 36415; G0103

== ENCOUNTER → 2024-04-01 | Outpatient (CLI) | payer MEDICAID ==
[2024-04-01 11:24] LABS: Basophils % (A) 1 %; Eosinophils # (A) 0.2 k/uL (0-0.7); Eosinophils % (A) 4 %; HCT 43.7 % (39.0-53.0); HGB 14.1 gm/dL (13.0-17.5); Lymphocytes # (A) 1.7 k/uL (1.0-4.8); Lymphocytes % (A) 36 %; MCH 30.9 pg (25.0-35.0); MCHC 32.2 g/dL (31.0-37.0); Mean Platelet Volume 11.7; Monocytes # (A) 0.3 k/uL (0-1.0); Monocytes % (A) 6 %; Neutrophils # (A) 2.4 k/uL (1.3-7.7); Neutrophils % (A) 51 %; RBC 4.56 m/uL (4.30-5.90); RDW 14.7 % (11.5-15.5); WBC 4.8 k/uL (3.8-10.6)
[2024-04-01 12:57] LABS: RBC Morphology Normal
[2024-04-01 17:01] LABS: Protein, Total 6.8 g/dL (6.2-8.2)
[2024-04-01 17:14] LABS: Hepatitis C IgG Antibody Nonreactive (Nonreactive)
[2024-04-01 19:50] LABS: HIV 2 AB Non-Reactive (Non-Reactive); HIV AB P24 Non-Reactive (Non-Reactive); HIV P24 AG Non-Reactive (Non-Reactive)
== END | disposition home or self-care (01) ==
LOC: LABWHC1 10:13
PROVIDERS: ATTEND Internal Medicine
DX: D72.819 Decreased white blood cell count, unspecified (principal)
CPT/HCPCS: 36415; 82607; 82746; 83615; 84165; 85025; 86038; 86039; 86334; 86803; 87390

== ENCOUNTER → 2024-07-04 | Outpatient (CLI) | payer MEDICAID ==
[2024-07-04 15:06] LABS: HCT 44.4 % (39.6-50.0); HGB 14.2 g/dL (13.0-17.0); MCH 29.9 pg (27.0-32.0); MCV 93.5 FL (80.0-97.0); Mean Platelet Volume 12.5 FL (9.5-12.2); NRBC Per 100 WBC 0 X 10*3/uL (0.00-0.01); Platelet Count 123 X 10*3/uL (140-440); RBC 4.75 X 10*6/uL (4.40-5.60); RDW 15.2 % (11.5-14.5)
== END | disposition home or self-care (01) ==
LOC: LABWHC1 10:06
PROVIDERS: ATTEND Obstetrics & Gynecology
DX: E34.50 Androgen insensitivity syndrome, unspecified (principal)
CPT/HCPCS: 36415; 82670; 84402; 84403; 85027